=== PATIENT | female | born 1990 | race Caucasian/White ===

== ENCOUNTER 2024-10-07 09:00 | Outpatient (AMB) | payer OTHER, SELFPAY ==
--- OUTSIDE RECORDS SUMMARY | 2024-10-07 09:30 | XMS_ITS | Clinical Summary ---
Author Organization [facility] Address [address] [place] [address] Phone Care Team Providers Care Safekeeping Clerk Name Role Phone Froilan Du MD Primary Care Provider [phone] Allergies No known active allergies Medications montelukast (SINGULAIR) 10 mg tablet Take 10 mg by mouth nightly at bedtime. Active fluticasone propionate (FLONASE NASL) by Nasal route. Active norethindrone (MICRONOR) 0.35 mg tablet Take 1 tablet by mouth daily. Active albuterol 90 mcg/actuation inhaler Inhale 2 puffs into the lungs every 6 (six) hours as needed for wheezing. Active Active Problems Problem Noted Date Diagnosed Date Dermoid cyst of scalp 09/01/2019 Social History Tobacco Use Types Packs/Day Years Used Date Smoking Tobacco: Never Smokeless Tobacco: Never Alcohol Use Standard Drinks/Week Comments Not Currently 0 (1 standard drink = 0.6 oz pur e alcohol) Education Answer Date Recorded Are you interested in more education? Not on heaven e 06/17/2022 Are you concerned about learning? Not on file 06/17/2022 No 06/17/2022 No 06/17/2022 Digital Access Answer Date Recorded No 07/16/2022 No 07/16/2022 No 07/16/2022 Reliable internet access at home? Not on file 07/16/2022 Device with a working camera? Not on file Comments Unknown Sex and Gender Information Value Date Recorded Sex Assigned at Not on file Legal Sex Female 8:58 AM EDT Gender Identity Not on file Sexual Orientation Not on file Last Filed Vital Signs Vital Sign Reading Time Taken Comments Blood Pressure 108/68 09/01/2019 9:22 AM EDT Pulse 61 09/01/2019 9:22 AM EDT Temperature 36.4 C (97.6 F) 09/01/2019 9:22 AM EDT Respiratory Rate 16 07/27/2019 9:11 AM EDT Oxygen Saturation 100% 09/01/2019 9:22 AM EDT Inhaled Oxygen Concentration - - Weight 68 kg (150 lb) 09/01/2019 9:22 AM EDT Height 170.2 cm (5' 7 ) 09/01/2019 9:22 AM EDT Body Mass Index 23.49 09/01/2019 9:22 AM EDT Plan of Treatment Health Maintenance Due Date Last Done Comments DEPRESSION SCREENING 2000 HEPATITIS C SCREENING 2006 HIV ONE-TIME SCREENING (18-6 5 YEARS) 2006 PAP SMEAR 2009 COVID-19 VACCINE (2023-2 5 season) 2023 04/24/2020 Adult Td,Tdap Booster 01/15/2029 01/15/2019 , 09/09/2016 SMOKING STATUS SCREENING (On ce After 26 Yrs) Completed 09/01/2019 HEPATITIS A VACCINES Aged Out No long er eligible based on patient's age to complete this topic HIB VACCINES Aged Out No longer eligi ble based on patient's age to complete this topic MENINGOCOCCAL VACCINES (ACWY) Aged Out No longer eligible based on patient's age to complete this topic MENINGOCOCCAL VACCINES (B) Aged Out N o longer eligible based on patient's age to complete this topic PNEUMOCOCCAL VACCINES (0-49 years) Aged Out No longer eligible b ased on patient's age to complete this topic Medical Devices Not on file Insurance [facility] HMO O [place] [address] [place] [address] [place] [address]O O Care Teams Safekeeping Clerk Relationship Specialty Start Date End Date Froilan Du MD [address] [place] [phone] PCP - General Internal Medicine 07/27/19 Additional Source Comments The information contained in this document represents components of the legal health record. It is not the complete legal health record.[facility]
--- OUTSIDE RECORDS SUMMARY | 2024-10-07 09:30 | XMS_ITS | Patient Health Record ---
Author Organization [facility] Address [address] [place] [address] Care Team Providers Care Nail Polish Brush Machine Feeder Name Role Phone Po Froilan CHESTER Primary Care Provider Juan R Lin Jr [phone] Allergies Allergen (clinical drug ingredient) Drug/Non Drug Allergy documented on EMR Reaction Allergy Type Onset Date Status tree,dust,grass,dog, ca t (uncoded) Unknown Allergy Active Reason For Referral No Information Medications Medication SIG (Take, Route, Frequency, Duration) Notes Start Date End Date Status Singulair Active Claritin Active ProAir HFA Active Active Flonase Active Social History Tobacco Use: Social History Observation Description Date Details (start date - stop date) Never Smoker NA - NA Tobacco Use/Smoking Question Answer Notes Patient is a nonsmoker Alcohol Screen Question Answer Notes Did you have a drink containing alcohol in the p ast year? No Points 0 Interpretation Negative Problems Problem Type SNOMED Code ICD Code Onset Dates Problem Status W/U Status Risk Notes Problem 85479220 Upper GI bleeding (K92.2) Active confirmed Problem 90381861 Iron deficiency anemia, unspecified iron deficiency anemia type (D50.9) Active confirmed Plan Of Treatment Pending Test Test Name Order Date IRON + IBC (FE) 07/19/2017 CBC w/o DIFF 07/19/2017 Insurance Providers Payer Name Payer Address Payer Phone Subscriber Number Group Number Insured Name Patient Relationship to Insured Coverage Start Date Coverage End Date [facility] [address] [place] [id number] Self - patient is the insured Medical (General) History Medical History History ICD Code asthma allergies Surgical History Surgery Date(Month/Year) section 2016
== END 2024-10-07 10:10 | disposition home or self-care (01) ==
PROVIDERS: PCP Internal Medicine; Visit Provider Registered Nurse Emergency
DX: J30.89 Other allergic rhinitis (principal)
CPT/HCPCS: 95117; 95165

== ENCOUNTER 2024-10-14 15:20 | Outpatient (AMB) | payer OTHER, SELFPAY ==
--- OUTSIDE RECORDS SUMMARY | 2024-10-14 16:56 | XMS_ITS | Clinical Summary ---
Author Organization [facility] Address [address] [place] [address] Phone Care Team Providers Care Patient Registrar Name Role Phone Froilan Du MD Primary Care Provider [phone] Allergies No known active allergies Medications montelukast [...] topic Medical Devices Not on file Insurance [facility] HMO O [place] [address] [place], [place] [address] [place] [address] [place] [address]O O Care Teams Patient Registrar Relationship Specialty Start Date End Date Froilan Du MD [address] [place] [phone] PCP - General Internal Medicine 07/27/19 Additional Source Comments The information contained in this document represents components of the legal health record. It is not the complete legal health record.[facility]
--- OUTSIDE RECORDS SUMMARY | 2024-10-14 16:56 | XMS_ITS | Patient Health Record ---
Author Organization [facility] Address [address] [place] [address] Care Team Providers Care Professor Of Nursing Name Role Phone Po Froilan CHESTER Primary Care Provider Juan R Lin Jr Allergies Allergen (clinical drug ingredient) Drug/Non Drug [...] Problem Status W/U Status Risk Notes Problem 50781179 Upper GI bleeding (K92.2) Active confirmed Problem 70175866 Iron deficiency anemia, unspecified iron deficiency anemia type (D50.9) Active confirmed Plan Of Treatment Pending Test Test Name Order Date IRON + IBC (FE) 07/19/2017 CBC w/o DIFF 07/19/2017 Insurance Providers Payer Name Payer Address Payer Phone Subscriber Number Group Number Insured Name Patient Relationship to Insured Coverage Start Date Coverage End Date [facility] [address] [place] [address] [id number] Self - patient is the insured Medical (General) History Medical History History ICD Code asthma allergies Surgical History Surgery Date(Month/Year) section 2016
== END 2024-10-14 15:55 | disposition home or self-care (01) ==
LOC: HO.HMGAL 15:20
PROVIDERS: PCP Internal Medicine; Visit Provider Registered Nurse Emergency
DX: J30.89 Other allergic rhinitis (principal)
CPT/HCPCS: 95117; 95165

== ENCOUNTER 2024-10-23 14:30 | Outpatient (AMB) | payer OTHER, SELFPAY ==
--- OUTSIDE RECORDS SUMMARY | 2024-10-23 16:47 | XMS_ITS | Patient Health Record ---
Author Organization [facility] Address [address] [place] [address] Care Team Providers Care Refinish Technician Name Role Phone Po Froilan CHESTER Primary [...] Problem Status W/U Status Risk Notes Problem [id number] Upper GI bleeding (K92.2) Active confirmed Problem 31508268 Iron deficiency anemia, unspecified iron deficiency anemia type (D50.9) Active confirmed Plan Of Treatment Pending Test Test Name Order Date IRON + IBC (FE) 07/19/2017 CBC w/o DIFF 07/19/2017 Insurance Providers Payer Name Payer Address Payer Phone Subscriber Number Group Number Insured Name Patient Relationship to Insured Coverage Start Date Coverage End Date [facility] [address] [place] [id number] Self - patient is the insured Medical (General) History Medical History History ICD Code asthma allergies Surgical History Surgery Date(Month/Year) section 2016
--- OUTSIDE RECORDS SUMMARY | 2024-10-23 16:47 | XMS_ITS | Clinical Summary ---
Author Organization [facility] Address [address] [place] [address] Phone Care Team Providers Care Pre K Special Education Teacher Name Role Phone Froilan Du MD Primary Care Provider [phone] Allergies No known active allergies Medications montelukast (SINGULAIR) 10 mg tablet Take 10 mg by mouth nightly at bedtime. Active fluticasone propionate (FLONASE NASL) by Nasal route. Active norethindrone (MICRONOR) 0.35 mg tablet Take 1 tablet by mouth daily. Active albuterol 90 mcg/actuation inhaler Inhale 2 puffs into the lungs every 6 (six) hours as needed for wheezing. Active XIFAXAN 550 mg Tab take 1 tablet by mouth three times a day for 14 days 08/28/2024 Active albuterol 90 mcg/actuation inhaler Inhale 2 puffs into the lungs every 6 (six) hours as needed. Active fluticasone propionate (FLONASE) 50 mcg/actuation nasal spray 1 spray by Nasal route. Active montelukast (SINGULAIR) 10 mg tablet 01/25/2018 Active norethindrone (SHAROBEL) 0.35 mg tablet 02/14/2018 Active Active Problems Problem Noted Date Diagnosed Date Dermoid cyst of scalp 09/01/2019 Encounters Date Type Department Care Team Description 10/16/2024 6:30 PM EDT [facility] Visit [facility] [address] [place] [address] Yomaira Pruett CNP Paper entering through skin, initial encounter (Primary Dx) from Last 3 Months Social History Tobacco Use Types Packs/Day Years [...] Answer Date Recorded No 07/16/2022 No 07/16/2022 Reliable internet access [...] Sign Reading Time Taken Comments Blood Pressure 104/69 10/16/2024 6:43 PM EDT Pulse 63 10/16/2024 6:43 PM EDT Temperature 36.4 C (97.6 F) 10/16/2024 6:43 PM EDT Respiratory Rate 20 10/16/2024 6:43 PM EDT Oxygen Saturation 99% 10/16/2024 6:43 PM EDT Inhaled Oxygen Concentration - - Weight 68 kg (150 lb) 10/16/2024 6:43 PM EDT Height 170.2 cm (5' 7 ) 10/16/2024 6:43 PM EDT Body Mass Index 23.49 10/16/2024 6:43 PM EDT Plan of Treatment Health Maintenance Due Date Last Done Comments DEPRESSION SCREENING 2000 HEPATITIS C SCREENING 2006 HIV ONE-TIME SCREENING (18-65 YEARS) 2006 PAP SMEAR 2009 INFLUENZA VACCINE (#1) 2024 , 11/18/2022, 12/15/2021, Additional history exists Adult Td,Tdap Booster 01/15/2029 01/15/2019, 017 COVID-19 VACCINE Completed 11/19/2023, , 12/15/2021, Additional history exists SMOKING STATUS SCREENING (Once After 26 Yrs) Completed 10/16/2024 HEPATITIS A VACCINES Aged Out No long [...] (0-49 years) Aged Out No longer eligible based on patient's age to complete this topic Medical Devices Not on file Insurance HMO HMO O O O [facility] [address] [place], [place] [address] [facility] HMO HMO Care Teams Pre K Special Education Teacher Relationship Specialty Start Date End Date Froilan Du MD [address] [place] [phone] PCP - General Internal Medicine 07/27/19 Additional Source Comments The information contained in this document represents components of the legal health record. It is not the complete legal health record.[facility]
== END 2024-10-23 14:54 | disposition home or self-care (01) ==
LOC: HO.HMGAL 14:30
PROVIDERS: PCP Internal Medicine; Visit Provider Registered Nurse Emergency
DX: J30.89 Other allergic rhinitis (principal)
CPT/HCPCS: 95117; 95165

== ENCOUNTER 2024-10-28 15:15 | Outpatient (AMB) | payer OTHER, SELFPAY ==
--- OUTSIDE RECORDS SUMMARY | 2024-10-28 18:23 | XMS_ITS | Patient Health Record ---
Author Organization [facility] Address [address] [place] [address] Care Team Providers Care Orientation & Mobility Specialist Name Role Phone Po Froilan CHESTER Primary Care Provider Juan R Lin Jr [phone] Allergies Allergen (clinical drug ingredient) Drug/Non Drug [...] Problem Status W/U Status Risk Notes Problem 34129059 Upper GI bleeding (K92.2) Active confirmed Problem 51609169 Iron deficiency anemia, unspecified iron deficiency anemia type (D50.9) Active confirmed Plan Of Treatment Pending Test Test Name Order Date IRON + IBC (FE) 07/19/2017 CBC w/o DIFF 07/19/2017 Insurance Providers Payer Name Payer Address Payer Phone Subscriber Number Group Number Insured Name Patient Relationship to Insured Coverage Start Date Coverage End Date [facility] [address] [place] [id number] Self - patient is the insured Medical (General) History Medical History History ICD Code asthma allergies Surgical History Surgery Date(Month/Year) section 2016
--- OUTSIDE RECORDS SUMMARY | 2024-10-28 18:24 | XMS_ITS | Clinical Summary ---
Author Organization [facility] Address [address] [place] [address] Phone Care Team Providers Care Spinner Hydraulic Name Role Phone Froilan Du MD Primary Care Provider [phone] Allergies No known active allergies Medications montelukast [...] Office Visit [facility] at [address] [place] [address] Yomaira Pruett CNP Paper entering through skin, [...] file Insurance HMO HMO O O O [facility] [address] [address] [place], [place] [address]O [facility] HMO HMO Care Teams Spinner Hydraulic Relationship Specialty Start Date End Date Froilan Du MD [address] [place] [phone] PCP - General Internal Medicine 07/27/19 Additional Source Comments The information contained in this document represents components of the legal health record. It is not the complete legal health record.[facility]
== END 2024-10-28 15:31 | disposition home or self-care (01) ==
LOC: HO.HMGAL 15:15
PROVIDERS: PCP Internal Medicine; Visit Provider Registered Nurse Emergency
DX: J30.89 Other allergic rhinitis (principal)
CPT/HCPCS: 95117; 95165

== ENCOUNTER 2024-11-04 15:32 | Outpatient (AMB) | payer OTHER, SELFPAY ==
--- OUTSIDE RECORDS SUMMARY | 2024-11-04 20:55 | XMS_ITS | Clinical Summary ---
Author Organization [facility] Address [address] [place] [address] Phone Care Team Providers Care Certified Master Safecracker Name Role Phone Froilan Du MD Primary Care Provider [phone] Allergies No known active allergies Medications montelukast [...] [facility] Visit [facility] at [address] [place] [address] Yomaira Pruett CNP Paper entering through skin, [...] file Insurance HMO HMO O O O [facility] [address] [place], [place] [address]O [facility] HMO HMO Care Teams Certified Master Safecracker Relationship Specialty Start Date End Date Froilan Du MD [address] [place] [phone] PCP - General Internal Medicine 07/27/19 Additional Source Comments The information contained in this document represents components of the legal health record. It is not the complete legal health record.[facility]
--- OUTSIDE RECORDS SUMMARY | 2024-11-04 20:55 | XMS_ITS | Patient Health Record ---
Author Organization [facility] Address [address] [place] [address] Care Team Providers Care Unemployment Benefits Claims Taker Name Role Phone Po Froilan CHESTER Primary [...] Problem Status W/U Status Risk Notes Problem 83777043 Upper GI bleeding (K92.2) Active confirmed Problem 16514849 Iron deficiency anemia, unspecified iron deficiency anemia type (D50.9) Active confirmed Plan Of Treatment Pending Test Test Name Order Date IRON + IBC (FE) 07/19/2017 CBC w/o DIFF 07/19/2017 Insurance Providers Payer Name Payer Address Payer Phone Subscriber Number Group Number Insured Name Patient Relationship to Insured Coverage Start Date Coverage End Date [facility] [address] [place] [phone] [id number] Self - patient is the insured Medical (General) History Medical History History ICD Code asthma allergies Surgical History Surgery Date(Month/Year) section 2016
== END 2024-11-04 15:33 | disposition home or self-care (01) ==
LOC: HO.HMGAL 15:32
PROVIDERS: PCP Internal Medicine; Visit Provider Registered Nurse Emergency
DX: J30.89 Other allergic rhinitis (principal)
CPT/HCPCS: 95117; 95165

== ENCOUNTER 2024-11-11 15:36 | Outpatient (AMB) | payer OTHER, SELFPAY | END 2024-11-11 15:37 | disposition home or self-care (01) | LOC: HO.HMGAL 15:36 | PROVIDERS: PCP Internal Medicine; Visit Provider Registered Nurse Emergency | DX: J30.89 Other allergic rhinitis (principal) | CPT/HCPCS: 95117; 95165 ==

== ENCOUNTER 2024-11-25 15:30 | Outpatient (AMB) | payer OTHER, SELFPAY ==
--- OUTSIDE RECORDS SUMMARY | 2024-11-25 17:53 | XMS_ITS | Patient Health Record ---
Author Organization [facility] Address [address] [place] [address] Care Team Providers Care Crane Man Name Role Phone Po Froilan CHESTER Primary [...] Problem Status W/U Status Risk Notes Problem 48644542 Upper GI bleeding (K92.2) Active confirmed Problem 29769855 Iron deficiency anemia, unspecified iron deficiency anemia type (D50.9) Active confirmed Plan Of Treatment Pending Test Test Name Order Date IRON + IBC (FE) 07/19/2017 CBC w/o DIFF 07/19/2017 Insurance Providers Payer Name Payer Address Payer Phone Subscriber Number Group Number Insured Name Patient Relationship to Insured Coverage Start Date Coverage End Date [facility] [address] [place] [phone] [id number] Self - patient is the insured Medical (General) History Medical History History ICD Code asthma allergies Surgical History Surgery Date(Month/Year) section 2016
--- OUTSIDE RECORDS SUMMARY | 2024-11-25 17:53 | XMS_ITS | Clinical Summary ---
Author Organization [facility] Address [address] [place] [address] Phone Care Team Providers Care Dray Truck Driver Name Role Phone Froilan Du MD Primary Care Provider [phone] Allergies No known active allergies Medications montelukast [...] [facility] Visit [facility] at [address] [place] [address] Yomaira Pruett CNP Paper entering through skin, [...] file Insurance HMO HMO O O O [facility] [address] [place], [place] [address]O [facility] HMO HMO Care Teams Dray Truck Driver Relationship Specialty Start Date End Date Froilan Du MD [address] [place] [phone] PCP - General Internal Medicine 07/27/19 Additional Source Comments The information contained in this document represents components of the legal health record. It is not the complete legal health record.[facility]
== END 2024-11-25 15:31 | disposition home or self-care (01) ==
LOC: HO.HMGAL 15:30
PROVIDERS: PCP Internal Medicine; Visit Provider Registered Nurse Emergency
DX: J30.89 Other allergic rhinitis (principal)
CPT/HCPCS: 95117; 95165

== ENCOUNTER 2024-12-04 15:55 | Outpatient (AMB) | payer OTHER, SELFPAY ==
--- OUTSIDE RECORDS SUMMARY | 2024-12-04 19:09 | XMS_ITS | Clinical Summary ---
Author Organization [facility] Address [address] [place] [address] Phone Care Team Providers Care Superintendent Marine Name Role Phone Froilan Du MD Primary Care Provider [phone] Allergies No known active allergies Medications montelukast [...] [facility] Visit [facility] at [address] [place] [address] Yomaira Pruett CNP Paper entering through skin, [...] 2024 , 11/18/2022, 12/15/2021, Additional history exists COVID-19 VACCINE ( season) 2024 11/19/2023, 11/18/2022, 12/15/2021, Additional history exists Adult Td,Tdap Booster 01/15/2029 01/15/2019, 017 SMOKING STATUS SCREENING (Once After 26 Yrs) [...] Medical Devices Not on file Insurance [place] [address] [address] [place] [address] [place] [address] [place] [address] [place] [address] HMO Care Teams Superintendent Marine Relationship Specialty Start Date End Date Froilan Du MD [address] [place] [address] [address] [place] [phone] PCP - General Internal Medicine 07/27/19 Additional Source Comments The information contained in this document represents components of the legal health record. It is not the complete legal health record.[facility]
--- OUTSIDE RECORDS SUMMARY | 2024-12-04 19:09 | XMS_ITS | Patient Health Record ---
Author Organization [facility] Address [address] [place] [address] Care Team Providers Care Paper Box Cutter Name Role Phone Po Froilan CHESTER Primary Care Provider Juan R Lin Jr Unavailable [phone] Allergies Allergen (clinical drug ingredient) Drug/Non Drug [...] Problem Status W/U Status Risk Notes Problem Upper GI bleeding (97859788) Upper GI bleeding (K92.2) Active confirmed Problem Iron deficiency anemia (20818153) Iron deficiency anemia, unspecified iron deficiency anemia type (D50.9) Active confirmed Plan Of Treatment Pending Test Test Name Order Date IRON + IBC (FE) 07/19/2017 CBC w/o DIFF 07/19/2017 Insurance Providers Payer Name Payer Address Payer Phone Subscriber Number Group Number Insured Name Patient Relationship to Insured Coverage Start Date Coverage End Date [facility] [address] [facility] [id number] Self - patient is the insured Medical (General) History Medical History History ICD Code asthma allergies Surgical History Surgery Date(Month/Year) section 2016
== END 2024-12-04 15:55 | disposition home or self-care (01) ==
LOC: HO.HMGAL 15:55
PROVIDERS: PCP Internal Medicine; Visit Provider Registered Nurse Emergency
DX: J30.89 Other allergic rhinitis (principal)
CPT/HCPCS: 95117; 95165

== ENCOUNTER 2024-12-09 15:45 | Outpatient (AMB) | payer OTHER, SELFPAY | END 2024-12-09 15:46 | disposition home or self-care (01) | LOC: HO.HMGAL 15:45 | PROVIDERS: PCP Internal Medicine; Visit Provider Registered Nurse Emergency | DX: J30.89 Other allergic rhinitis (principal) | CPT/HCPCS: 95117; 95165 ==

== ENCOUNTER 2024-12-16 15:38 | Outpatient (AMB) | payer OTHER, SELFPAY ==
--- OUTSIDE RECORDS SUMMARY | 2024-12-16 18:42 | XMS_ITS | Patient Health Record ---
Author Organization [facility] Address [address] [place] [address] Care Team Providers Care Hydrator Name Role Phone Po Froilan CHESTER Primary Care Provider Juan R Lin Jr Unavailable [phone] Allergies Allergen (clinical drug ingredient) Drug/Non Drug [...] Status Risk Notes Problem Upper GI bleeding (07874046) Upper GI bleeding (K92.2) Active confirmed Problem Iron deficiency anemia (06400149) Iron deficiency anemia, unspecified iron deficiency anemia type (D50.9) Active confirmed Plan Of Treatment Pending Test Test Name Order Date IRON + IBC (FE) 07/19/2017 CBC w/o DIFF 07/19/2017 Insurance Providers Payer Name Payer Address Payer Phone Subscriber Number Group Number Insured Name Patient Relationship to Insured Coverage Start Date Coverage End Date [facility] [address] [facility] [id number] Self - patient is the insured Medical (General) History Medical History History ICD Code asthma allergies Surgical History Surgery Date(Month/Year) section 2016
--- OUTSIDE RECORDS SUMMARY | 2024-12-16 18:42 | XMS_ITS | Clinical Summary ---
Author Organization [facility] Address [address] [facility] [address] [address] [place] [address] Phone Care Team Providers Care Motion Picture Printer Name Role Phone Froilan Du MD Primary Care Provider [phone] Allergies No known active allergies Medications montelukast [...] Office Visit [facility] at [address] [place] [address] Yomaira Pruett CNP Paper entering through skin, [...] Medical Devices Not on file [place] [place] [address] [place], [place] [address] [place] [place] [address] [place] [address] [place] [address] [place] [address] HMO Care Teams Motion Picture Printer Relationship Specialty Start Date End Date Froilan Du MD [address] [place] [address] [address] [place] [phone] PCP - General Internal Medicine 07/27/19 Additional Source Comments The information contained in this document represents components of the legal health record. It is not the complete legal health record.[facility]
== END 2024-12-16 15:39 | disposition home or self-care (01) ==
LOC: HO.HMGAL 15:38
PROVIDERS: PCP Internal Medicine; Visit Provider Registered Nurse Emergency
DX: J30.89 Other allergic rhinitis (principal)
CPT/HCPCS: 95117; 95165

== ENCOUNTER 2024-12-23 15:37 | Outpatient (AMB) | payer OTHER, SELFPAY | END 2024-12-23 15:38 | disposition home or self-care (01) | LOC: HO.HMGAL 15:37 | PROVIDERS: PCP Internal Medicine; Visit Provider Registered Nurse Emergency | DX: J30.89 Other allergic rhinitis (principal) | CPT/HCPCS: 95117; 95165 ==

== ENCOUNTER 2024-12-30 15:35 | Outpatient (AMB) | payer OTHER, SELFPAY ==
--- OUTSIDE RECORDS SUMMARY | 2024-12-30 17:39 | XMS_ITS | Clinical Summary ---
Author Organization [facility] Address [address] [facility] [address] [place] [address] Phone Care Team Providers Care Courtroom Clerk Name Role Phone Froilan Du MD Primary Care Provider [phone] Allergies No known active allergies Medications montelukast [...] Office Visit [facility] at [address] [place] [address] Yomaira Pruett CNP Paper entering through skin, [...] on patient's age to complete this topic IPV VACCINES Aged Out No longer eligi ble [...] Devices Not on file Insurance [place] [address] [place] [address] [place] [address] [address] [place] [address] [place] [address] HMO [facility] [place] [address] [place] [address] HMO Care Teams Courtroom Clerk Relationship Specialty Start Date End Date Froilan Du MD [address] [place] [address] Drive [address] [place] [phone] PCP - General Internal Medicine 07/27/19 Additional Source Comments The information contained in this document represents components of the legal health record. It is not the complete legal health record.[facility]
== END 2024-12-30 15:35 | disposition home or self-care (01) ==
LOC: HO.HMGAL 15:35
PROVIDERS: PCP Internal Medicine; Visit Provider Registered Nurse Emergency
DX: J30.89 Other allergic rhinitis (principal)
CPT/HCPCS: 95117; 95165

== ENCOUNTER 2025-01-06 15:22 | Outpatient (AMB) | payer OTHER, SELFPAY ==
--- OUTSIDE RECORDS SUMMARY | 2025-01-07 06:00 | XMS_ITS | Clinical Summary ---
Author Organization [facility] Address [address] [facility] [address] [place] [address] Phone Care Team Providers Care Clinical Trial Manager Name Role Phone Froilan Du MD Primary Care Provider [phone] Allergies No known active allergies Medications montelukast [...] Office Visit [facility] at [address] [place] [address] Yomaira Pruett CNP Paper entering through skin, [...] Devices Not on file Insurance [place] [address] [address] [place] [address] [place] [address] [place] [address] [address] [place] [address] HMO [facility] [place] [address] [address] HMO Care Teams Clinical Trial Manager Relationship Specialty Start Date End Date Froilan Du MD [address] [place] [address] Drive [address] [place] [phone] PCP - General Internal Medicine 07/27/19 Additional Source Comments The information contained in this document represents components of the legal health record. It is not the complete legal health record.[facility]
== END 2025-01-06 15:23 | disposition home or self-care (01) ==
LOC: HO.HMGAL 15:22
PROVIDERS: PCP Internal Medicine; Visit Provider Registered Nurse Emergency
DX: J30.89 Other allergic rhinitis (principal)
CPT/HCPCS: 95117; 95165

== ENCOUNTER 2025-01-13 15:41 | Outpatient (AMB) | payer OTHER, SELFPAY ==
--- OUTSIDE RECORDS SUMMARY | 2025-01-13 20:11 | XMS_ITS | Clinical Summary ---
Author Organization [facility] Address [address] [facility] [address] [place] [address] Phone Care Team Providers Care Senior Bi Developer Name Role Phone Froilan Du MD Primary Care Provider [phone] Allergies No known active allergies Medications montelukast [...] Office Visit [facility] at [address] [place] [address] Yomaira Pruett CNP Paper entering through skin, [...] Medical Devices Not on file Insurance [place] [address] [place] [place] [address] [place], [place] [address] [place] [address] [address] HMO Care Teams Senior Bi Developer Relationship Specialty Start Date End Date Froilan Du MD [address] [place] [address] Drive [address] [place] [phone] PCP - General Internal Medicine 07/27/19 Additional Source Comments The information contained in this document represents components of the legal health record. It is not the complete legal health record.[facility]
== END 2025-01-13 15:42 | disposition home or self-care (01) ==
LOC: HO.HMGAL 15:41
PROVIDERS: PCP Internal Medicine; Visit Provider Registered Nurse Emergency
DX: J30.89 Other allergic rhinitis (principal)
CPT/HCPCS: 95117; 95165

== ENCOUNTER 2025-01-20 15:17 | Outpatient (AMB) | payer OTHER, SELFPAY ==
--- OUTSIDE RECORDS SUMMARY | 2025-01-20 18:20 | XMS_ITS | Clinical Summary ---
Author Organization [facility] Address [address] [facility] [address] [place] [address] Phone Care Team Providers Care Manager Maritime Name Role Phone Froilan Du MD Primary Care Provider [phone] Allergies No known active allergies Medications montelukast [...] 11/18/2022, 12/15/2021, Additional history exists COVID-19 VACCINE (2024- season) 2024 11/19/2023, 11/18/2022, 12/15/2021, Additional history [...] Medical Devices Not on file Insurance [place]MO [address] [place], [place] [id number] HMO [facility] H[facility] Care Teams Manager Maritime Relationship Specialty Start Date End Date Froilan Du MD [address] [place] [phone] PCP - General Internal Medicine 07/27/19 Additional Source Comments The information contained in this document represents components of the legal health record. It is not the complete legal health record.[facility]
== END 2025-01-20 15:18 | disposition home or self-care (01) ==
LOC: HO.HMGAL 15:17
PROVIDERS: PCP Internal Medicine; Visit Provider Registered Nurse Emergency
DX: J30.89 Other allergic rhinitis (principal)
CPT/HCPCS: 95117; 95165

== ENCOUNTER 2025-01-27 15:44 | Outpatient (AMB) | payer OTHER, SELFPAY | END 2025-01-27 15:45 | disposition home or self-care (01) | LOC: HO.HMGAL 15:44 | PROVIDERS: PCP Internal Medicine; Visit Provider Registered Nurse Emergency | DX: J30.89 Other allergic rhinitis (principal) | CPT/HCPCS: 95117; 95165 ==

== ENCOUNTER 2025-02-03 15:53 | Outpatient (AMB) | payer OTHER, SELFPAY ==
--- OUTSIDE RECORDS SUMMARY | 2025-02-03 22:17 | XMS_ITS | Clinical Summary ---
Author Organization [facility] Address [address] [facility] [address] [place] [address] Phone Care Team Providers Care Microelectronics Engineer Name Role Phone Froilan Du MD Primary Care Provider [phone] Allergies No known active allergies Medications montelukast [...] Medical Devices Not on file Insurance HMO [address] [place], [place] [id number] HMO [facility] Address: [address] [address] HMO [facility] Address[facility] [address] [address] Care Teams Microelectronics Engineer Relationship Specialty Start Date End Date Froilan Du MD [address] [place] [phone] PCP - General Internal Medicine 07/27/19 Additional Source Comments The information contained in this document represents components of the legal health record. It is not the complete legal health record.[facility]
--- OUTSIDE RECORDS SUMMARY | 2025-02-03 22:17 | XMS_ITS | Patient Health Record ---
Author Organization [facility] Address [address] [place] [phone] Care Team Providers Care Transmission And Protection Engineer Name Role Phone Froilan Du MD Primary Care Provider Juan R Lin Jr Unavailable Allergies Allergen (clinical drug ingredient) Drug/Non Drug [...] stop date) Never Smoker NA - NA Social History Drugs/Alcohol: Social Info Question Answer Notes Alcohol Screen Did you have a drink containing alcohol in the past year? No Points 0 Interpretation Negative Tobacco Use: Social Info Question Answer Notes Tobacco Use/Smoking Patient is a nonsmoker Additional Details Category Social Info Options Details Miscellaneous: Marital status: Occupation: teacher Problems Problem Type SNOMED Code ICD Code Onset Dates Problem Status W/U Status Risk Notes Problem Upper GI bleeding (01178756) Upper GI bleeding (K92.2) Active confirmed Problem Iron deficiency anemia (53172660) Iron deficiency anemia, unspecified iron deficiency anemia type (D50.9) Active confirmed Plan Of Treatment Pending Test Test Name Order Date IRON + IBC (FE) 07/19/2017 CBC w/o DIFF 07/19/2017 Insurance Providers Payer Name Payer Address Payer Phone Subscriber Number Group Number Insured Name Patient Relationship to Insured Coverage Start Date Coverage End Date [facility] [address] [facility] [place] [id number] Self - patient is the insured Medical (General) History Medical History History ICD Code asthma allergies Surgical History Surgery Date(Month/Year) section 2016
== END 2025-02-03 15:53 | disposition home or self-care (01) ==
LOC: HO.HMGAL 15:53
PROVIDERS: PCP Internal Medicine; Visit Provider Registered Nurse Emergency
DX: J30.89 Other allergic rhinitis (principal)
CPT/HCPCS: 95117; 95165

== ENCOUNTER 2025-02-10 15:27 | Outpatient (AMB) | payer OTHER, SELFPAY ==
--- OUTSIDE RECORDS SUMMARY | 2025-02-10 18:28 | XMS_ITS | Clinical Summary ---
Author Organization [facility] Address [address] [facility] [address] [place] [address] Phone Care Team Providers Care Boiler Riveter Name Role Phone Froilan Du MD Primary Care Provider [phone] Allergies No known active allergies Medications montelukast [...] Medical Devices Not on file Insurance [address]MO [address] [place], [place] [address]O HMO O [facility] H[facility] Care Teams Boiler Riveter Relationship Specialty Start Date End Date Froilan Du MD [address] [facility] [place] [phone] PCP - General Internal Medicine 07/27/19 Additional Source Comments The information contained in this document represents components of the legal health record. It is not the complete legal health record.[facility]
--- OUTSIDE RECORDS SUMMARY | 2025-02-10 18:28 | XMS_ITS | Patient Health Record ---
Author Organization [facility] Address [address] [place] [phone] Care Team Providers Care Door Captain Name Role Phone Froilan Du MD Primary [...] Status Risk Notes Problem Upper GI bleeding (50515245) Upper GI bleeding (K92.2) Active confirmed Problem Iron deficiency anemia (12544037) Iron deficiency anemia, unspecified iron deficiency anemia type (D50.9) Active confirmed Plan Of Treatment Pending Test Test Name Order Date IRON + IBC (FE) 07/19/2017 CBC w/o DIFF 07/19/2017 Insurance Providers Payer Name Payer Address Payer Phone Subscriber Number Group Number Insured Name Patient Relationship to Insured Coverage Start Date Coverage End Date [facility] [address] [facility] [place] [id number] Self - patient is the insured Medical (General) History Medical History History ICD Code asthma allergies Surgical History Surgery Date(Month/Year) section 2016
== END 2025-02-10 15:28 | disposition home or self-care (01) ==
LOC: HO.HMGAL 15:27
PROVIDERS: PCP Internal Medicine; Visit Provider Registered Nurse Emergency
DX: J30.89 Other allergic rhinitis (principal)
CPT/HCPCS: 95117; 95165